=== PATIENT | female | born 1985 | race Caucasian/White ===

== ENCOUNTER → 2016-03-12 | Outpatient (CLI) | payer BC ==
[~2016-03-12] MED LIST: AMIT10TA6 PO; BCPILLS PO; CHOL100010 PO; COLC0.6T54 PO; DICY20TA10 PO; GABA-113 PO; GLUCAGON FOR INJ 1 MG VIAL IM SCH; MELA3TAB PO; METO-157 PO; MULT-506 PO; NURSING VERBAL MED ORDER ONE; PROM25TA16 PO; SULF500T8 PO; SUMA6KIT IM; SUMA6KIT SQ; TOPI25TA99 PO; TPRSR/25 PO
--- NOTE | 2016-03-13 07:29 | DIAGNOSTIC IMAGING REPORT ---
MRI OF THE ABDOMEN AND PELVIS WITH AND WITHOUT CONTRAST ENTEROGRAPHY PROTOCOL CLINICAL HISTORY: Right upper quadrant pain and diarrhea. Family history of Crohn's disease. COMPARISON STUDY: MRI of the pelvis December 11, 2015, right upper quadrant ultrasound July 05, [address] of the abdomen and pelvis January 30, 2010. TECHNIQUE: The patient ingested oral contrast. Utilizing a 1.5 Thania magnet, multiplanar, multi echo imaging of the abdomen was performed pre and postcontrast administration. Post contrast imaging was performed utilizing dynamic enhancement. Injection of 7 cc of Gadavist IV was uneventful. 1 mg of glucagon was administered IM at 11:10 AM. FINDINGS: The liver, spleen, adrenal glands, kidneys and pancreas are normal. Slight dilatation of the common bile duct is noted. This is likely due to cholecystectomy. The caliber and wall thickness of small and large bowel are normal. There is no evidence for a bowel obstruction. No fluid collections identified to suggest an abscess. No fistula is identified. There is no perianal or perirectal abscess identified by MRI. No abdominal or pelvic lymphadenopathy is present. The terminal ileum is within normal limits. IMPRESSION: 1. Unremarkable MR enterography. No bowel wall thickening. No bowel obstruction. 2. Slight dilatation of the common bile duct. This is likely due to prior cholecystectomy. Electronically signed by: Stanton Cabrera M.D. 03/13/2016 7:27 AM Dictated Date/Time: 03/12/2016 11:48 AM
== END | disposition home or self-care (01) ==
LOC: C.MRI 09:33
PROVIDERS: ATTEND Internal Medicine Gastroenterology
DX: R10.11 Right upper quadrant pain (principal)

== ENCOUNTER 2016-08-12 06:35 | Emergency (ER) | payer BC ==
[~2016-08-12] VITALS: Ht 160 cm; Wt 82.0 kg
[~2016-08-12 06:35] MED LIST changes: -AMIT10TA6 PO; -CHOL100010 PO; -DICY20TA10 PO; -GLUCAGON FOR INJ 1 MG VIAL IM SCH; -METO-157 PO; -NURSING VERBAL MED ORDER ONE; -SULF500T8 PO; -TPRSR/25 PO
[2016-08-12 06:41] VITALS: TEMP 36.7; Ht 160 cm; Wt 82.0 kg
[2016-08-12] MEDS ORDERED: SODIUM CHLORIDE 0.9% 1000ML 1,000 ML IV STA ×3 (06:48→09:42)
[2016-08-12] MEDS ORDERED: ONDANSETRON INJ 2 MG/ML 2 ML VIAL IV STA ×2 (06:48→07:59)
--- NOTE | 2016-08-12 06:51 | EMERGENCY ROOM VISIT NOTE ---
History First contact with patient: 06:45 Chief Complaint: ABDOMINAL PAIN Stated Complaint: VOMITING,STOMACH CRAMPS History of Present Illness The patient is a 30 year old female who presents to the Emergency Room with complaints of right sided abdominal pain. Associated nausea, vomiting and having watery diarrhea. Started last night around midnight. No strange foods and was eating the same food as her boyfriend. No recent travel. No blood in stool or melena. She feels chills, no fever. Pain severity 7/10, no radiation. She has IBS but feels that this pain is different from her previous cramping. She reports having an obstruction in Jan 2010 and it feels similar to that. On review of those records it appears the initial impression was small bowel obstruction but subsequent CT scan showed no pathology. She reports no previous C[employer]IE[employer] problems causing her abdominal pain. No recent antibiotics. Previous appendicectomy and cholecystectomy. LMP 2 weeks ago. Denies chance of . Review of Systems See HPI for pertinent positives & negatives. A total of 10 systems reviewed and were otherwise negative. Past Medical/Surgical History Medical Problems: (1) IBS (irritable bowel syndrome) (2) Migraine (3) POTS (postural orthostatic tachycardia syndrome) Family History Crohn's disease Diabetes mellitus FH: pulmonary embolism Gallbladder disease Heart disease Hypertension Lung disease Social History Smoking Status: Never Smoker Alcohol Use: none Drug Use: none Marital Status: single Housing Status: lives with roommate Occupation Status: [employer] student Current/Historical Medications Scheduled Amitriptyline Hcl (Elavil), 10 MG PO DAILY Control Pills ( Control Pills), 1 TAB PO DAILY Cholecalciferol (Vitamin D), 1,000 UNITS PO DAILY Gabapentin (Neurontin), 900 MG PO HS Melatonin (Melatonin), 6 MG PO HS Metoprolol Succinate (Metoprolol Succinate ER), 25 MG PO DAILY Multivitamin (Multivitamin), 1 TAB PO DAILY Sulfasalazine (Azulfidine), 2,000 MG PO BID Topiramate (Topamax ), 25 MG PO HS Scheduled PRN Dicyclomine Hcl (Dicyclomine Hcl), 1 TAB PO QID PRN for abdominal cramping Metoclopramide (Reglan), 10 MG PO TID PRN for Nausea Promethazine HCl (Promethazine HCl), MG PO Q6 PRN for Nausea or Vomiting Sumatriptan Succinate (Imitrex Statdose), 6 MG SQ DAILY PRN for Headache Allergies Coded Allergies: Zonisamide (Unverified Allergy, Severe, TACHYCARDIA, 06/01/15) Physical Exam Vital Signs Date Time Temp Pulse Resp B/P (MAP) Pulse Ox O2 Delivery O2 Flow Rate FiO2 08/12/16 11:12 99 18 110/70 99 Room Air 08/12/16 10:05 100 20 106/74 99 Room Air 08/12/16 09:25 101 18 117/71 98 Room Air 08/12/16 07:30 110 20 107/74 96 Room Air 08/12/16 06:41 36.7 121 20 137/79 96 Room Air Physical Exam VITAL SIGNS: were reviewed as above GENERAL: moderate acute distress from pain, lying in bed SKIN: Warm dry and pink, no rashes HEAD: Normocephalic and atraumatic EYES: extraocular muscles intact, pupils equal and reactive to light OROPHARYNX: non erythematous, clear, dry mucus membranes LUNGS: No respiratory distress, clear to auscultation, no accessory muscle use HEART: Increased rate, regular rhythm, heart sounds 1+2, no murmurs ABDOMEN: Soft, tender over right side of her abdomen, bowel sounds normal, prefers to lie still BACK: right sided CVA tenderness but reports much worse when pressing on the right side of her abdomen EXTREMITIES: Warm and well perfused, no calf tenderness/swelling, no pedal edema. NEUROLOGICALLY: Awake alert and oriented without limb gross focal deficit. There is no facial droop. Speech is clear. Vision is grossly normal. Medical Decision & Procedures ER Provider Diagnostic Interpretation: PA CHEST WITH ABDOMINAL SERIES CLINICAL HISTORY: Epigastric abdominal pain. Vomiting and diarrhea. FINDINGS: A PA chest radiograph is compared to study dated 09/28/2014. The cardiomediastinal silhouette is unremarkable. The lungs and pleural spaces are clear. No pneumothorax is seen. The bony thorax is grossly intact. Supine and erect abdominal radiographs are correlated with abdominal CT dated 01/30/2010. There is a nonobstructed abdominal bowel gas pattern. No evidence of intraperitoneal free air is seen. Cholecystectomy clips are noted. There are no abnormal abdominal calcifications. The lumbosacral spine and bony pelvis are intact. Mild sclerotic change is noted in the sacroiliac joints. IMPRESSION: 1. No active disease in the chest. 2. Unremarkable abdominal radiographs. Electronically signed by: Tyler Wilson M.D. 08/12/2016 9:11 AM Dictated Date/Time: 08/12/2016 9:09 AM Laboratory Results 08/12/16 07:05 Red Blood Count 5.21, Mean Corpuscular Volume 86.0, Mean Corpuscular Hemoglobin 29.4, Mean Corpuscular Hemoglobin Concent 34.2, Mean Platelet Volume 9.2, Neutrophils (%) (Auto) 91.5, Lymphocytes (%) (Auto) 4.0, Monocytes (%) (Auto) 4.0, Eosinophils (%) (Auto) 0.1, Basophils (%) (Auto) 0.1, Neutrophils # (Auto) 11.06, Lymphocytes # (Auto) 0.48, Monocytes # (Auto) 0.48, Eosinophils # (Auto) 0.01, Basophils # (Auto) 0.01 08/12/16 07:05 Test 08/12/16 06:48 08/12/16 07:05 08/12/16 07:20 White Blood Count 12.08 K/uL (4.8-10.8) Red Blood Count 5.21 M/uL (4.2-5.4) Hemoglobin 15.3 g/dL (12.0-16.0) Hematocrit 44.8 % (37-47) Mean Corpuscular Volume 86.0 fL (80-100) Mean Corpuscular Hemoglobin 29.4 pg (25-34) Mean Corpuscular Hemoglobin Concent 34.2 g/dl (32-36) Platelet Count 245 K/uL (130-400) Mean Platelet Volume 9.2 fL (7.4-10.4) Neutrophils (%) (Auto) 91.5 % Lymphocytes (%) (Auto) 4.0 % Monocytes (%) (Auto) 4.0 % Eosinophils (%) (Auto) 0.1 % Basophils (%) (Auto) 0.1 % Neutrophils # (Auto) 11.06 K/uL (1.4-6.5) Lymphocytes # (Auto) 0.48 K/uL (1.2-3.4) Monocytes # (Auto) 0.48 K/uL (0.11-0.59) Eosinophils # (Auto) 0.01 K/uL (0-0.5) Basophils # (Auto) 0.01 K/uL (0-0.2) RDW Standard Deviation 37.9 fL (36.4-46.3) RDW Coefficient of Variation 11.9 % (11.5-14.5) Immature Granulocyte % (Auto) 0.3 % Immature Granulocyte # (Auto) 0.04 K/uL (0.00-0.02) Anion Gap 11.0 mmol/L (3-11) Est Creatinine Clear Calc Drug Dose 84.2 ml/min Estimated GFR () 88.2 Estimated GFR (Non- 76.1 BUN/Creatinine Ratio 10.0 (10-20) Calcium Level 9.3 mg/dl (8.5-10.1) Total Bilirubin 0.8 mg/dl (0.2-1) Aspartate Amino Transf (AST/SGOT) 18 U/L (15-37) Alanine Aminotransferase (ALT/SGPT) 24 U/L (12-78) Alkaline Phosphatase 52 U/L (45-117) Total Protein 7.6 gm/dl (6.4-8.2) Albumin 3.9 gm/dl (3.4-5.0) Globulin 3.7 gm/dl (2.5-4.0) Albumin/Globulin Ratio 1.1 (0.9-2) Lipase 127 U/L (73-393) Urine Color DK YELLOW Urine Appearance CLEAR (CLEAR) Urine pH 5.5 (4.5-7.5) Urine Specific [place] 1.026 (1.000-1.030) Urine Protein NEG (NEG) Urine Glucose (UA) NEG (NEG) Urine Ketones 3+ (NEG) Urine Occult Blood NEG (NEG) Urine Nitrite NEG (NEG) Urine Bilirubin NEG (NEG) Urine Urobilinogen NEG (NEG) Urine Leukocyte Esterase TRACE (NEG) Urine WBC (Auto) 1-5 /hpf (0-5) Urine RBC (Auto) 0-4 /hpf (0-4) Urine Hyaline Casts (Auto) 1-5 /lpf (0-5) Urine Epithelial Cells (Auto) 20-30 /lpf (0-5) Urine Bacteria (Auto) NEG (NEG) Medications Administered Medications (Trade) Dose Ordered Sig/Edy Route Start Time Stop Time Status Last Admin Dose Admin Sodium Chloride 1,000 ml @ 999 mls/hr Q1H1M STAT IV 08/12/16 06:48 08/12/16 07:48 DC 08/12/16 07:13 999 MLS/HR Ondansetron HCl (Zofran Inj) 4 mg NOW STAT IV 08/12/16 06:48 08/12/16 06:51 DC 08/12/16 07:13 4 MG Fentanyl Citrate (Fentanyl Inj) 50 mcg NOW ONCE IV 08/12/16 07:30 08/12/16 07:31 DC 08/12/16 07:38 50 MCG Ondansetron HCl (Zofran Inj) 4 mg NOW STAT IV 08/12/16 07:59 08/12/16 08:01 DC 08/12/16 08:26 4 MG Sodium Chloride 1,000 ml @ 999 mls/hr Q1H1M STAT IV 08/12/16 08:03 08/12/16 09:03 DC 08/12/16 08:26 999 MLS/HR Ranitidine HCl (zANTac IV) 50 mg NOW STAT IV 08/12/16 08:13 08/12/16 08:20 DC 08/12/16 08:25 50 MG Metoclopramide HCl (Reglan Inj) 10 mg NOW STAT IV 08/12/16 08:13 08/12/16 08:20 DC 08/12/16 08:26 10 MG Sodium Chloride 1,000 ml @ 999 mls/hr Q1H1M STAT IV 08/12/16 09:42 08/12/16 10:42 DC 08/12/16 09:51 999 MLS/HR Dicyclomine HCl (Bentyl Inj) 20 mg NOW STAT IM 08/12/16 10:03 08/12/16 10:05 DC 08/12/16 10:25 20 MG Loperamide HCl (Imodium Cap) 4 mg NOW STAT PO 08/12/16 10:19 08/12/16 10:21 DC 08/12/16 11:13 4 MG ECG Indication: abdominal pain, nausea Rate (beats per minute): 97 Rhythm: normal sinus Findings: no acute ischemic change Change: no significant change (Sep 26 2014) ED Course 0645 Complete history and physical performed 0705 Patient was discussed with Dr Weller who separately performed history and physical, morphine changed to fentanyl 0754 Reassessed patient - still feeling nauseous with mainly generalized abdominal cramping rather than RUQ pain. 0935 Reassessed patient - feels improved with nausea but abdominal cramping present. [address] Weller, ordered dicyclomine 20mg IM for her abdominal cramping 1034 Reassessed patient - wishes to be discharged, discussed waiting for bowel movement to test stool, she wishes to go before this and will follow up with her family physician Medical Decision Prior records/ancillary studies reviewed. Triage Nursing notes reviewed. Additional history obtained from patient. The patient's history was concerning for abdominal pain. Differential diagnosis: Etiologies such as appendicitis, diverticulitis, PUD, biliary pathology, UTI, pancreatitis, obstruction, mesenteric ischemia, aortic pathology, infections, inflammatory bowel disease, renal colic, as well as others were entertained. Physical examination findings: As above. ER treatment provided: NSS 1L x3 bolus Zofran 4mg IV Fentanyl 50 mcg Zantac 50mg IV Metoclopramide 10mg IV Dicyclomine 20mg IM Loperamide 4mg PO On reassessment the patient felt better and was tolerating liquids Diagnostics interpreted by me: ECG: as above The labs revealed mildly elevated WBC UA was positive for ketones in her urine Urine POC was negative Imaging studies: Abdominal series - unremarkable, no sign of obstruction By the evaluation outlined above emergent etiologies such as appendicitis, diverticulitis, PUD, biliary pathology, UTI, pancreatitis, obstruction, mesenteric ischemia, aortic pathology, infections, inflammatory bowel disease, renal colic, as well as others were deemed relatively unlikely. Suspected diagnosis of gastroenteritis but also may be her chronic IBS. Given the extent of previous imaging and colonoscopies The patient informed about the findings as listed above. All questions were answered. Return instructions were outlined and the patient was discharged in stable condition. Outpatient prescription management: Dicyclomine 20mg PO QID 28 tabs for abdominal cramping Metoclopramide 10mg PO PRN TID for nausea Referral: The patient was referred back to their primary care physician for follow-up in 1 to 2 days for a recheck of the current condition. [place] Drug Monitoring Program Search Results: patient reviewed within database, no issues identified Impression Primary Impression: Right sided abdominal pain Additional Impressions: IBS (irritable bowel syndrome) Nausea & vomiting Departure Information Dispostion Home / Self-Care Condition FAIR Prescriptions Metoclopramide (Reglan) 10 Mg Tab 10 MG PO TID Y for Nausea, #20 TAB Prov: Mara, Paresh, MD 08/12/16 Dicyclomine Hcl (DICYCLOMINE HCL) 20 Mg Tab 1 TAB PO QID Y for abdominal cramping for 7 Days, #28 TAB Prov: Paresh Terry MD 08/12/16 Referrals Luly Malik PA-C (PCP) Patient Instructions My [facility] Additional Instructions VOMITING INSTRUCTIONS: DO NOT drive, drink alcohol, operate machinery, or perform dangerous activities today. You were given medications in the ER that can affect your ability to safely function or operate a vehicle. Reglan(metoclopramide) tablets 10mg: Take one every six hours as needed for nausea. Avoid alcohol, operating machinery or dangerous equipment, working on ladders or roofs, DRIVING, or situations where being under the influence may be dangerous. Zofran(odansetron) tablets 4mg: Take one and allow it to dissolve in your mouth every four to six hours as needed for nausea or vomiting. Ibuprofen(Motrin, Advil) may be used for fever or pain. Use 600mg every six hours as needed. Take with food. Avoid using more than 2400mg in a 24 hour period. Do not use 2400mg per day for more than three consecutive days without physician direction. Prolonged inappropriate use can lead to stomach upset or ulcers. This is available over the counter and typically comes in 200mg tablets. Acetaminophen(Tylenol) may be used for fever or pain. Use 1000mg every eight hours as needed. Avoid using more than 3000mg in a 24 hour period. This is available over the counter. Dicyclomine 20 mg 4 times daily for 7 days for abdominal cramping. The main side effect of this medication is dizziness, if you develop this please call your primary care provider and stop this medication. Read all the package inserts or medication information paperwork provided. If you have any questions or concerns call your primary provider, pharmacist or the ER for assistance. Rest and drink plenty of fluids as tolerated. Slow sips of water or sports drinks are recommended instead of large amounts all at once. Continue current medications. Once your stomach is settled start with a clear liquid diet (jello, soup broth, etc.) and then advance as tolerated. You should avoid full, heavy meals for about 24 hrs from the time your symptoms resolved. Return to the ER for persistent vomiting, fevers, abdominal pain, chest pains, difficulty breathing, black or bloody stools, worsening of your condition, or as needed. Follow up with your primary physician in 1-2 days for a recheck of your current condition Resident Tracking Resident Involvement: Resident Care Provided Care Provided: Adult ED Problem Qualifiers Additional Impressions: IBS (irritable bowel syndrome) Irritable bowel syndrome type: with both diarrhea and constipation Qualified Codes: K58.2 - Mixed irritable bowel syndrome Nausea & vomiting Vomiting type: unspecified Vomiting Intractability: non-intractable Qualified Codes: R11.2 - Nausea with vomiting, unspecified
[2016-08-12] MEDS ORDERED: MoRPHine SULFATE 4 MG/ML 1 ML CARP\\VIAL IV STA (06:59)
[2016-08-12] MEDS ORDERED: AMIT10TA6 PO (07:19)
[2016-08-12] MEDS ORDERED: TPRSR/25 PO (07:19)
[2016-08-12] MEDS ORDERED: SULF500T8 PO (07:19)
[2016-08-12] MEDS ORDERED: CHOL100010 PO (07:19)
[2016-08-12 07:21] LABS: BASO % 0.1 %; BASO ABS # 0.01 K/uL (0-0.2); COMPLETE YES; EOS % 0.1 %; HEMATOCRIT 44.8 % (37-47); IG% 0.3 %; LYMPH ABS # 0.48 K/uL (1.2-3.4); MEAN CORPUSCULAR HEMOGLOBIN 29.4 pg (25-34); MEAN CORPUSCULAR HGB CONC 34.2 g/dl (32-36); MEAN PLATELET VOLUME 9.2 fL (7.4-10.4); NEUT % 91.5 %; PLATELET COUNT 245 K/uL (130-400); RED BLOOD COUNT 5.21 M/uL (4.2-5.4); WHITE BLOOD COUNT 12.08 K/uL (4.8-10.8)
[2016-08-12] MEDS ORDERED: FENTANYL CITRATE INJ 50 MCG/1 ML 2 ML VIAL IV ONE (07:30)
[2016-08-12 07:38] LABS: CALCIUM 9.3 mg/dl (8.5-10.1); POTASSIUM 4.1 mmol/L (3.5-5.1)
[2016-08-12 07:39] LABS: URINE APPEARANCE CLEAR (CLEAR); URINE BILIRUBIN NEG (NEG); URINE COLOR DK YELLOW; URINE EPITHELIAL CELL AUTO 20-30 /lpf (0-5); URINE NITRITE NEG (NEG); URINE PH 5.5 (4.5-7.5); URINE SPECIFIC GRAVITY 1.026 (1.000-1.030); UROBILINOGEN NEG (NEG); ZZUR CULT IF INDIC CLEAN CATCH NO
[2016-08-12 07:41] LABS: ALB/GLOB RATIO 1.1 (0.9-2)
[2016-08-12 07:43] LABS: MANUAL MICROSCOPIC REQUIRED? NO; REVIEW REQ? NO
[2016-08-12] MEDS ORDERED: METOCLOPRAMIDE HCL INJ 5 MG/ML 2 ML VIAL IV STA (08:13)
[2016-08-12] MEDS ORDERED: RANITIDINE HCL 50 MG/100 ML D5W IV STA (08:13)
--- NOTE | 2016-08-12 09:13 | DIAGNOSTIC IMAGING REPORT ---
PA CHEST WITH ABDOMINAL SERIES CLINICAL HISTORY: Epigastric abdominal pain. Vomiting and diarrhea. FINDINGS: A PA chest radiograph is compared to study dated 09/28/2014. The cardiomediastinal silhouette is unremarkable. The lungs and pleural spaces are clear. No pneumothorax is seen. The bony thorax is grossly intact. Supine and erect abdominal radiographs are correlated with abdominal CT dated 01/30/2010. There is a nonobstructed abdominal bowel gas pattern. No evidence of intraperitoneal free air is seen. Cholecystectomy clips are noted. There are no abnormal abdominal calcifications. The lumbosacral spine and bony pelvis are intact. Mild sclerotic change is noted in the sacroiliac joints. IMPRESSION: 1. No active disease in the chest. 2. Unremarkable abdominal radiographs. Electronically signed by: Tyler Wilson M.D. 08/12/2016 9:11 AM Dictated Date/Time: 08/12/2016 9:09 AM
[2016-08-12] MEDS ORDERED: DICYCLOMINE HCL 10 MG/ML 2 ML AMP IM STA (10:03)
[2016-08-12] MEDS ORDERED: LOPERAMIDE HCL 2 MG CAP PO STA ×2 (10:19→10:50)
[2016-08-12] MEDS ORDERED: METO-157 PO (11:07)
[2016-08-12] MEDS ORDERED: DICY20TA10 PO (11:07)
[2016-08-12 11:12] VITALS: BP 110/70; PULSE 99; O2SAT 99
--- NOTE | 2016-08-12 15:28 | EMERGENCY ROOM VISIT NOTE ---
ED Visit Note First contact with patient: 06:45 Resident Physician Supervision Note: I interviewed and examined the patient. Discussed with Dr. Terry and agree with findings and plan as documented in the note. Any exceptions or clarifications are listed here: [None] This patient was evaluated and appeared to be in some discomfort. IV access was obtained and laboratory work was drawn. The patient declined the morphine however she agreed to some IV fentanyl for her pain. This did seem to help somewhat. Laboratory work was reviewed, x-ray series is negative. The patient continued complaining of symptom abdominal cramping and was given IM Bentyl. She is felt stable for discharge. Please see Dr. Terry's notes for further details of the history, physical and visit. Documented By: Danitza Weller
== END 2016-08-12 11:18 | disposition home or self-care (01) ==
LOC: C.EDB 06:36 → C.EDA 11:18
DX: R10.11 Right upper quadrant pain (principal); R10.31 Right lower quadrant pain; K58.9 Irritable bowel syndrome, unspecified; R11.2 Nausea with vomiting, unspecified; I49.8 Other specified cardiac arrhythmias; Z79.3 Long term (current) use of hormonal contraceptives; Z83.3 Family history of diabetes mellitus; Z83.79 Family history of other diseases of the digestive system; Z82.49 Family history of ischemic heart disease and other diseases of the circulatory system; Z83.2 Family history of diseases of the blood and blood-forming organs and certain disorders involving the immune mechanism